=== PATIENT | female | born 1965 | race African-American/Black ===

== ENCOUNTER 2016-08-11 15:15 | Emergency (ER) | payer MEDICARE ==
[~2016-08-11] VITALS: Ht 170.2 cm; Wt 125.0 kg
[~2016-08-11 15:15] MED LIST: ATENOLOL50 MG PO; AUGMENTIN875TAB OR; BACTRIM DS1 TAB PO; CIPRO500 MG OR; CIPRO500 MG PO; CIPROFLOXACN500 MG PO; CLONIDINE0.2 MG OR; EC-NAPROSYN500 MG OR; FIORICET PO; FLAGYL500 MG OR; FLEXERIL OR; FLEXERIL PO; FLEXERIL5 M1 PO; FUROSEMIDE20 MG PO; HYDROCHLOROT12.5 M1 OR; HYDROCHLOROT12.5 MG OR; LASIX 20 MG TAB20 MG PO; LEVAQUIN500 MG OR; LISINOPRIL5 MG OR; LORTAB 5/3255 MG PO; LORTAB 7.5 OR; MEDDOSEPAK PO; MEDROL4 M1 OR; MELOXICAM7.5 MG PO; METRONIDAZOL500 MG PO; NAPROSYN500 MG OR; NEXIUM20 MG PO; NO HOME MEDS; OMEPRAZOLE20 M1 OR; OMEPRAZOLE40 MG PO; PHENERGAN25 MG/ML IM; POLY GLYCOL3350 MG PO; PYRIDIUM200 MG PO; REGLAN10 MG OR; ROBAXIN250 MG OR; TIZANIDINE2 MG PO; TORADOL IM; TRAMADOL HCL50 MG PO; TYLENOL # 31 TAB PO; ULTRAM50 M1 OR; ULTRAM50 M1 PO; ULTRAM50 MG OR; ULTRAM50 MG PO; [UNRECOGNIZED DRUG - REMARK]
[2016-08-11] MEDS ORDERED: TRAMADOL HYDROC50 MG (16:05)
[2016-08-11] MEDS ORDERED: RANITIDINE150 M1 PO (16:06)
[2016-08-11] MEDS ORDERED: AMITIZA24 MC1 PO (16:12)
[2016-08-11] MEDS ORDERED: MIRALAX3350 N1 PO (16:16)
[2016-08-11 16:28] LABS: HEMATOCRIT 40.5 % (37.0-47.0); HEMOGLOBIN 13.4 g/dl (12.0-16.0); IMMATURE GRANULOCYTES 0.2 % (0.0-1.0); MEAN CELL VOLUME 86.4 fL CALC (80.0-100.0); MEAN CORPUSCULAR HGB 28.6 pG CALC (26.0-32.0); MEAN CORPUSCULAR HGB CONC 33.1 g/L CALC (32.0-36.0); NEUT# 2.77 thou/uL (2.00-7.15); RED BLOOD COUNT 4.69 mill/uL (4.20-5.60); RED CELL DISTRI WIDTH 14.5 % (11.5-15.5)
[2016-08-11 16:30] LABS: URINE BILIRUBIN - DIPSTICK NEGATIVE (NEGATIVE); URINE BLOOD DIPSTICK NEGATIVE (NEGATIVE); URINE CLARITY CLEAR; URINE COLOR YELLOW; URINE GLUCOSE - DIPSTICK NEGATIVE (NEGATIVE); URINE KETONE NEGATIVE (NEGATIVE); URINE LEUK ESTERASE NEGATIVE (Negative); URINE NITRITE - DIPSTICK NEGATIVE (Negative); URINE PROTEIN - DIPSTICK NEGATIVE (NEG-TRACE); URINE UROBILINOGEN - DIPSTICK 0.2 E.U./dL (0.2)
[2016-08-11 16:45] LABS: ALBUMIN 4.3 g/dL (3.2-5.0); ALKALINE PHOSPHATASE 92 u/l (38-126); ANION GAP 15 (6-22 (CALC)); BILIRUBIN, TOTAL 0.6 mg/dL (0.0-1.4); BUN 13 mg/dL (7-17); BUN/CREATININE RATIO 17 (12-20 (CALC)); CALCIUM 9.8 mg/dL (8.4-10.2); CARBON DIOXIDE 29 mmol/l (22-30); CHLORIDE 104 mmol/l (95-108); CREATININE 0.7 mg/dL (0.5-1.0); GFR > 60 ML/MIN (>=60 (CALC)); GFR FOR AFR.AMER. > 60 ML/MIN (>=60 (CALC)); GLUCOSE 96 mg/dL (65-105); LIPASE 55 u/l (23-300); POTASSIUM 4.4 mmol/l (3.5-5.1); SGOT/AST 63 u/l (14-36); SGPT/ALT 57 u/l (9-52); SODIUM 144 mmol/l (137-146); TOTAL PROTEIN 7.4 g/dL (6.3-8.2)
[2016-08-11] MEDS ORDERED: ZOFRAN ODT4 MG PO (20:39)
[2016-08-11] MEDS ORDERED: ULTRAM50 M1 PO (20:39)
[2016-08-11] MEDS ORDERED: FLEXERIL PO (20:39)
[2016-08-11 21:20] VITALS: BP 153/77
== END 2016-08-11 21:22 | disposition home or self-care (01) ==
LOC: ED 15:15
PROVIDERS: Emergency Medicine
DX: R10.31 Right lower quadrant pain (principal); R10.32 Left lower quadrant pain; R11.0 Nausea; M46.1 Sacroiliitis, not elsewhere classified

== ENCOUNTER 2016-12-20 18:58 | Emergency (ER) | payer MEDICARE ==
[~2016-12-20] VITALS: Ht 170.2 cm; Wt 127.6 kg
[~2016-12-20 18:58] MED LIST changes: +AMITIZA24 MC1 PO; +MIRALAX3350 N1 PO; +RANITIDINE150 M1 PO; +TRAMADOL HYDROC50 MG; +ZOFRAN ODT4 MG PO
[2016-12-20 20:31] LABS: HEMATOCRIT 38.4 % (37.0-47.0); HEMOGLOBIN 12.7 g/dl (12.0-16.0); IMMATURE GRANULOCYTES 0.2 % (0.0-1.0); MEAN CELL VOLUME 88.9 fL CALC (80.0-100.0); MEAN CORPUSCULAR HGB 29.4 pG CALC (26.0-32.0); MEAN CORPUSCULAR HGB CONC 33.1 g/L CALC (32.0-36.0); NEUT# 3.54 thou/uL (2.00-7.15); RED BLOOD COUNT 4.32 mill/uL (4.20-5.60); RED CELL DISTRI WIDTH 14.1 % (11.5-15.5)
[2016-12-20 20:32] LABS: URINE BILIRUBIN - DIPSTICK NEGATIVE (NEGATIVE); URINE BLOOD DIPSTICK NEGATIVE (NEGATIVE); URINE CLARITY CLEAR; URINE COLOR YELLOW; URINE GLUCOSE - DIPSTICK NEGATIVE (NEGATIVE); URINE KETONE NEGATIVE (NEGATIVE); URINE LEUK ESTERASE NEGATIVE (NEGATIVE); URINE NITRITE - DIPSTICK NEGATIVE (Negative); URINE PROTEIN - DIPSTICK NEGATIVE (NEG-TRACE); URINE SPECIFIC GRAVITY 1.015; URINE UROBILINOGEN - DIPSTICK 0.2 E.U./dL (0.2)
[2016-12-20 20:47] LABS: ALBUMIN 4.1 g/dL (3.2-5.0); ALKALINE PHOSPHATASE 93 u/l (38-126); AMYLASE 103 u/l (30-110); ANION GAP 12 (6-22 (CALC)); BILIRUBIN, TOTAL 0.8 mg/dL (0.0-1.4); BUN 13 mg/dL (7-17); BUN/CREATININE RATIO 21 (12-20 (CALC)); CALCIUM 9.2 mg/dL (8.4-10.2); CARBON DIOXIDE 30 mmol/l (22-30); CHLORIDE 105 mmol/l (95-108); CREATININE 0.6 mg/dL (0.5-1.0); GFR > 60 ML/MIN (>=60 (CALC)); GFR FOR AFR.AMER. > 60 ML/MIN (>=60 (CALC)); GLUCOSE 86 mg/dL (65-105); LIPASE 50 u/l (23-300); POTASSIUM 3.7 mmol/l (3.5-5.1); SGOT/AST 32 u/l (14-36); SGPT/ALT 59 u/l (9-52); SODIUM 143 mmol/l (137-146); TOTAL PROTEIN 7.3 g/dL (6.3-8.2)
[2016-12-20 21:38] VITALS: BP 157/76
== END 2016-12-20 22:10 | disposition home or self-care (01) ==
LOC: ED 18:58
PROVIDERS: Emergency Medicine
DX: R10.33 Periumbilical pain (principal); G89.29 Other chronic pain; I10 Essential (primary) hypertension; Z90.49 Acquired absence of other specified parts of digestive tract
CPT/HCPCS: S0164

== ENCOUNTER 2017-12-04 04:14 | Emergency (ER) | payer MEDICARE ==
[~2017-12-04] VITALS: Ht 170.2 cm; Wt 128.8 kg
[2017-12-04 06:07] LABS: URINE BILIRUBIN - DIPSTICK NEGATIVE (NEGATIVE); URINE BLOOD DIPSTICK NEGATIVE (NEGATIVE); URINE CLARITY TURBID; URINE COLOR YELLOW; URINE GLUCOSE - DIPSTICK NEGATIVE (NEGATIVE); URINE KETONE NEGATIVE (NEGATIVE); URINE LEUK ESTERASE NEGATIVE (NEGATIVE); URINE NITRITE - DIPSTICK NEGATIVE (Negative); URINE PROTEIN - DIPSTICK NEGATIVE (NEG-TRACE); URINE UROBILINOGEN - DIPSTICK 0.2 E.U./dL (0.2)
[2017-12-04] MEDS ORDERED: MIRALAX3350 N1 PO (06:10)
[2017-12-04 06:13] LABS: HEMATOCRIT 41.2 % (37.0-47.0); HEMOGLOBIN 13.6 g/dl (12.0-16.0); IMMATURE GRANULOCYTES 0.3 % (0.0-1.0); MEAN CORPUSCULAR HGB 29.7 pG CALC (26.0-32.0); NEUT# 5.05 thou/uL (2.00-7.15); RED BLOOD COUNT 4.58 mill/uL (4.20-5.60); RED CELL DISTRI WIDTH 13.4 % (11.5-15.5)
[2017-12-04 06:21] LABS: ALKALINE PHOSPHATASE 104 u/l (38-126); AMYLASE 71 u/l (30-110); ANION GAP 13 (6-22 (CALC)); BILIRUBIN, TOTAL 0.7 mg/dL (0.0-1.4); BUN 13 mg/dL (7-17); BUN/CREATININE RATIO 15 (12-20 (CALC)); CARBON DIOXIDE 27 mmol/l (22-30); CHLORIDE 104 mmol/l (95-108); CREATININE 0.9 mg/dL (0.5-1.0); GFR > 60 ML/MIN (>=60 (CALC)); GFR FOR AFR.AMER. > 60 ML/MIN (>=60 (CALC)); LIPASE 33 u/l (23-300); SGOT/AST 29 u/l (14-36); SGPT/ALT 34 u/l (9-52); SODIUM 140 mmol/l (137-146); TOTAL PROTEIN 7.1 g/dL (6.3-8.2)
[2017-12-04] MEDS ORDERED: PREVACID30 M3 PO (07:40)
[2017-12-04] MEDS ORDERED: ULTRAM50 M1 PO (07:40)
[2017-12-04 07:50] VITALS: BP 131/79
== END 2017-12-04 07:50 | disposition home or self-care (01) ==
LOC: ED 04:14
PROVIDERS: Emergency Medicine
DX: R10.32 Left lower quadrant pain (principal); R10.31 Right lower quadrant pain; G89.29 Other chronic pain; I10 Essential (primary) hypertension; Z90.49 Acquired absence of other specified parts of digestive tract
CPT/HCPCS: Q9967; S0164

== ENCOUNTER 2018-03-26 01:34 | Emergency (ER) | payer MEDICARE ==
[~2018-03-26] VITALS: Ht 170.2 cm; Wt 127.0 kg
[~2018-03-26 01:34] MED LIST changes: +PREVACID30 M3 PO
[2018-03-26 02:28] LABS: HEMATOCRIT 38.4 % (37.0-47.0); HEMOGLOBIN 12.7 g/dl (12.0-16.0); IMMATURE GRANULOCYTES 0.2 % (0.0-5.0); MEAN CELL VOLUME 89.9 fL CALC (80.0-100.0); MEAN CORPUSCULAR HGB 29.7 pG CALC (26.0-32.0); MEAN CORPUSCULAR HGB CONC 33.1 g/L CALC (32.0-36.0); NEUT# 2.92 thou/uL (2.00-7.15); RED BLOOD COUNT 4.27 mill/uL (4.20-5.60); RED CELL DISTRI WIDTH 13.5 % (11.5-15.5)
[2018-03-26 02:29] LABS: URINE BILIRUBIN - DIPSTICK NEGATIVE (NEGATIVE); URINE BLOOD DIPSTICK NEGATIVE (NEGATIVE); URINE COLOR YELLOW; URINE GLUCOSE - DIPSTICK NEGATIVE (NEGATIVE); URINE KETONE NEGATIVE (NEGATIVE); URINE NITRITE - DIPSTICK NEGATIVE (Negative); URINE PROTEIN - DIPSTICK NEGATIVE (NEG-TRACE); URINE SPECIFIC GRAVITY 1.025; URINE UROBILINOGEN - DIPSTICK 0.2 E.U./dL (0.2)
[2018-03-26 02:42] LABS: URINE BACTERIA FEW hpf; URINE CLARITY SL CLOUDY; URINE LEUK ESTERASE MODERATE (NEGATIVE); URINE MUCUS FEW hpf (NONE-FEW); URINE SQUAMOUS EPITHELIAL CELL MODERATE EPI/hpf (0-FEW)
[2018-03-26 03:01] LABS: ALBUMIN 3.5 g/dL (3.2-5.0); ALKALINE PHOSPHATASE 83 u/l (38-126); AMYLASE 90 u/l (30-110); ANION GAP 10 (6-22 (CALC)); BILIRUBIN, TOTAL 0.6 mg/dL (0.0-1.4); BUN 22 mg/dL (7-17); BUN/CREATININE RATIO 29 (12-20 (CALC)); CARBON DIOXIDE 28 mmol/l (22-30); CHLORIDE 107 mmol/l (95-108); CREATININE 0.8 mg/dL (0.5-1.0); GFR > 60 ML/MIN (>=60 (CALC)); GFR FOR AFR.AMER. > 60 ML/MIN (>=60 (CALC)); LIPASE 63 u/l (23-300); SGOT/AST 25 u/l (14-36); SODIUM 141 mmol/l (137-146); TOTAL PROTEIN 6.3 g/dL (6.3-8.2)
[2018-03-26] MEDS ORDERED: CIPROFLOXACN500 MG PO (03:27)
[2018-03-26 03:55] VITALS: BP 121/65
== END 2018-03-26 04:00 | disposition home or self-care (01) ==
LOC: ED 01:34
PROVIDERS: Emergency Medicine
DX: R10.31 Right lower quadrant pain (principal); R10.32 Left lower quadrant pain; N39.0 Urinary tract infection, site not specified
CPT/HCPCS: Q9967; S0164

== ENCOUNTER 2018-06-02 09:53 | Outpatient (RCR) | payer MEDICARE | END 2018-07-20 10:30 | disposition home or self-care (01) | LOC: PT 09:53 | PROVIDERS: ATTEND Internal Medicine | DX: S43.422D Sprain of left rotator cuff capsule, subsequent encounter (principal) ==

== ENCOUNTER 2019-12-20 10:15 | Emergency (ER) | payer MEDICARE ==
[~2019-12-20] VITALS: Ht 170.2 cm; Wt 118.1 kg
[2019-12-20] MEDS ORDERED: FERR SULFATE325 MG PO (10:34)
[2019-12-20] MEDS ORDERED: ZESTRIL40 MG PO (10:34)
[2019-12-20] MEDS ORDERED: MYRBETRIQ50 MG PO (10:35)
[2019-12-20] MEDS ORDERED: LINZESS72 MCG PO (10:35)
[2019-12-20] MEDS ORDERED: ALLERGY RELF10 M3 PO (10:36)
[2019-12-20] MEDS ORDERED: GABAPENTIN300 M2 PO (10:36)
[2019-12-20] MEDS ORDERED: CYCLOBENZAPR5 MG PO (12:44)
[2019-12-20 13:18] VITALS: BP 125/61
[2020-01-08] MEDS ORDERED: MEDDOSEPAK PO (15:00)
[2020-01-08] MEDS ORDERED: DICLOFENAC75 MG PO (15:02)
[2020-01-08] MEDS ORDERED: BIOTIN (15:33)
[2020-01-08] MEDS ORDERED: CENTRUM PO (15:34)
[2020-01-08] MEDS ORDERED: CALCIUM + D600 MG PO (15:34)
[2020-01-08] MEDS ORDERED: FAMOTIDINE20 M3 PO (15:35)
[2020-01-08] MEDS ORDERED: HYDROCHLOROT25 MG PO (15:36)
[2020-01-08] MEDS ORDERED: E400400 UNIT PO (15:37)
[2020-01-08] MEDS ORDERED: SHINGRIX IM (15:38)
== END 2019-12-20 13:18 | disposition home or self-care (01) ==
LOC: ED 10:15
DX: R07.81 Pleurodynia (principal); I10 Essential (primary) hypertension

== ENCOUNTER 2021-05-10 19:15 | Emergency (ER) | payer MEDICARE ==
[~2021-05-10] VITALS: Ht 170.2 cm; Wt 125.0 kg
[~2021-05-10 19:15] MED LIST changes: +ALLERGY RELF10 M3 PO; +BIOTIN; +CALCIUM + D600 MG PO; +CENTRUM PO; +CYCLOBENZAPR5 MG PO; +DICLOFENAC75 MG PO; +E400400 UNIT PO; +FAMOTIDINE20 M3 PO; +FERR SULFATE325 MG PO; +GABAPENTIN300 M2 PO; +HYDROCHLOROT25 MG PO; +LINZESS72 MCG PO; +MYRBETRIQ50 MG PO; +SHINGRIX IM; +ZESTRIL40 MG PO
[2021-05-10] MEDS ORDERED: TORADOL PO (21:53)
[2021-05-10 22:19] VITALS: BP 130/66
== END 2021-05-10 22:15 | disposition home or self-care (01) ==
LOC: ED 19:15
DX: M70.72 Other bursitis of hip, left hip (principal); I10 Essential (primary) hypertension

== ENCOUNTER 2021-07-21 08:26 | Observation (INO) | payer MEDICARE ==
[~2021-07-21] VITALS: Ht 170.2 cm; Wt 117.0 kg
[~2021-07-21 08:26] MED LIST changes: +TORADOL PO
[2021-07-21 15:11] LABS: URINE BILIRUBIN - DIPSTICK NEGATIVE (NEGATIVE); URINE BLOOD DIPSTICK NEGATIVE (NEGATIVE); URINE COLOR YELLOW; URINE GLUCOSE - DIPSTICK NEGATIVE (NEGATIVE); URINE KETONE NEGATIVE (NEGATIVE); URINE LEUK ESTERASE NEGATIVE (NEGATIVE); URINE PROTEIN - DIPSTICK NEGATIVE (NEG-TRACE); URINE UROBILINOGEN - DIPSTICK 0.2 E.U./dL (0.2)
[2021-07-21 15:12] LABS: URINE NITRITE - DIPSTICK NEGATIVE (Negative)
[2021-07-21 16:07] LABS: HEMOGLOBIN 11.2 g/dl (12.0-16.0); MEAN CELL VOLUME 91.4 fL CALC (80.0-100.0); MEAN CORPUSCULAR HGB 29.2 pG CALC (26.0-32.0); NEUT# 1.96 thou/uL (2.00-7.15); RED BLOOD COUNT 3.83 mill/uL (4.20-5.60); RED CELL DISTRI WIDTH 12.6 % (11.5-15.5)
[2021-07-21 16:23] LABS: BILIRUBIN, TOTAL 0.7 mg/dL (0.0-1.4); CREATININE 1.4 mg/dL (0.5-1.0); POTASSIUM 4.5 mmol/l (3.5-5.1); TOTAL PROTEIN 6.9 g/dL (6.3-8.2)
[2021-07-21 17:55] VITALS: BP 133/43
[2021-07-21 18:42] VITALS: BP 109/31
[2021-07-22 04:07] VITALS: BP 97/45
[2021-07-22 06:16] LABS: HEMATOCRIT 35.4 % (37.0-47.0); HEMOGLOBIN 11.3 g/dl (12.0-16.0); MEAN CELL VOLUME 94.1 fL CALC (80.0-100.0); MEAN CORPUSCULAR HGB 30.1 pG CALC (26.0-32.0); MEAN CORPUSCULAR HGB CONC 31.9 g/dL CAL (32.0-36.0); RED BLOOD COUNT 3.76 mill/uL (4.20-5.60); RED CELL DISTRI WIDTH 12.7 % (11.5-15.5)
[2021-07-22 06:34] LABS: CREATININE 1.3 mg/dL (0.5-1.0); MAGNESIUM 2.9 mg/dL (1.6-2.3); POTASSIUM 4.5 mmol/l (3.5-5.1)
[2021-07-22] MEDS ORDERED: OMEPRAZOLE DR20 MG PO (09:01)
[2021-07-22] MEDS ORDERED: SIMVASTATIN40 MG PO (09:02)
[2021-07-22] MEDS ORDERED: CELEBREX200 M1 PO (09:03)
[2021-07-22 10:25] VITALS: BP 125/77
[2021-07-22 15:31] VITALS: BP 96/41
[2021-07-22 19:30] VITALS: BP 106/41
[2021-07-23 04:01] VITALS: BP 1408/41
[2021-07-23 05:57] LABS: HEMATOCRIT 32.3 % (37.0-47.0); HEMOGLOBIN 10.5 g/dl (12.0-16.0); MEAN CELL VOLUME 91.5 fL CALC (80.0-100.0); MEAN CORPUSCULAR HGB 29.7 pG CALC (26.0-32.0); MEAN CORPUSCULAR HGB CONC 32.5 g/dL CAL (32.0-36.0); RED BLOOD COUNT 3.53 mill/uL (4.20-5.60); RED CELL DISTRI WIDTH 12.5 % (11.5-15.5)
[2021-07-23 06:13] LABS: ANION GAP 11 (6-22 (CALC)); BUN 18 mg/dL (7-17); BUN/CREATININE RATIO 18 (12-20 (CALC)); CARBON DIOXIDE 23 mmol/l (22-30); CHLORIDE 110 mmol/l (95-108); GFR 57 ML/MIN (>=60 (CALC)); GFR FOR AFR.AMER. > 60 ML/MIN (>=60 (CALC)); MAGNESIUM 2.4 mg/dL (1.6-2.3); POTASSIUM 4.9 mmol/l (3.5-5.1); SODIUM 139 mmol/l (137-146)
[2021-07-23] MEDS ORDERED: FLEXERIL5 M1 PO (11:23)
[2021-07-23] MEDS ORDERED: PREDNISONE20 MG PO (11:24)
== END 2021-07-23 14:53 | disposition home or self-care (01) ==
LOC: ED 08:26 → MS2 16:30
PROVIDERS: Emergency Medicine; ADMIT Hospitalist; ATTEND Hospitalist
DX: M25.552 Pain in left hip (principal); M54.50 Low back pain, unspecified; M16.12 Unilateral primary osteoarthritis, left hip; I10 Essential (primary) hypertension; K59.00 Constipation, unspecified; Z90.49 Acquired absence of other specified parts of digestive tract; Z20.822 Contact with and (suspected) exposure to COVID-19

== ENCOUNTER 2022-01-02 00:29 | Emergency (ER) | payer MEDICARE ==
[~2022-01-02] VITALS: Ht 170.2 cm; Wt 107.1 kg
[~2022-01-02 00:29] MED LIST changes: +CELEBREX200 M1 PO; +OMEPRAZOLE DR20 MG PO; +PREDNISONE20 MG PO; +SIMVASTATIN40 MG PO
[2022-01-02] MEDS ORDERED: AMOXICILLIN500 MG PO (00:43)
[2022-01-02 02:01] VITALS: BP 130/67
== END 2022-01-02 02:05 | disposition home or self-care (01) ==
LOC: ED 00:29
DX: R07.0 Pain in throat (principal); I10 Essential (primary) hypertension

== ENCOUNTER 2022-09-12 11:50 | Emergency (ER) | payer MEDICARE ==
[~2022-09-12] VITALS: Ht 170.2 cm; Wt 104.3 kg
[~2022-09-12 11:50] MED LIST changes: +AMOXICILLIN500 MG PO
[2022-09-12 12:00] VITALS: BP 150/77
[2022-09-12 12:09] VITALS: BP 144/63
[2022-09-12 12:13] LABS: URINE BILIRUBIN - DIPSTICK NEGATIVE (NEGATIVE); URINE BLOOD DIPSTICK TRACE-INTACT (NEGATIVE); URINE COLOR YELLOW; URINE GLUCOSE - DIPSTICK NEGATIVE (NEGATIVE); URINE KETONE NEGATIVE (NEGATIVE); URINE LEUK ESTERASE NEGATIVE (NEGATIVE); URINE PROTEIN - DIPSTICK NEGATIVE (NEG-TRACE); URINE SPECIFIC GRAVITY 1.015; URINE UROBILINOGEN - DIPSTICK 0.2 E.U./dL (0.2)
[2022-09-12 12:14] LABS: URINE NITRITE - DIPSTICK NEGATIVE (Negative)
[2022-09-12 12:16] VITALS: BP 147/64
[2022-09-12 12:31] VITALS: BP 156/71
[2022-09-12 12:46] VITALS: BP 132/76
[2022-09-12 16:53] VITALS: BP 132/76
[2022-09-12] MEDS ORDERED: IBUPROFEN600 MG PO (17:04)
[2022-09-12] MEDS ORDERED: CYCLOBENZAPRINE10 MG PO (17:04)
== END 2022-09-12 17:17 | disposition home or self-care (01) ==
LOC: ED 11:50
PROVIDERS: Family Medicine
DX: R07.81 Pleurodynia (principal); I10 Essential (primary) hypertension

== ENCOUNTER 2023-06-17 09:30 | Emergency (ER) | payer MEDICARE ==
[~2023-06-17] VITALS: Ht 170.2 cm; Wt 106.4 kg
[~2023-06-17 09:30] MED LIST changes: +CYCLOBENZAPRINE10 MG PO; +IBUPROFEN600 MG PO
[2023-06-17] MEDS ORDERED: IBUPROFEN600 MG PO (12:05)
[2023-06-17] MEDS ORDERED: MUCINEX1200 MG PO (12:05)
[2023-06-17] MEDS ORDERED: PAXLOVID PO (12:06)
[2023-06-17 12:24] VITALS: BP 147/92
== END 2023-06-17 12:31 | disposition home or self-care (01) ==
LOC: ED 09:30
DX: U07.1 COVID-19 (principal); I10 Essential (primary) hypertension; R05.9 Cough, unspecified; R50.9 Fever, unspecified; M79.10 Myalgia, unspecified site

== ENCOUNTER 2023-12-16 09:33 | Emergency (ER) | payer MEDICARE ==
[~2023-12-16] VITALS: Ht 170.2 cm; Wt 104.0 kg
[2023-12-16] VITALS (10 sets, daily range): BP systolic 113–168; BP diastolic 74–121
[~2023-12-16 09:33] MED LIST changes: +MUCINEX1200 MG PO; +PAXLOVID PO
[2023-12-16] MEDS ORDERED: ACETAMINOPHEN 500 MG TAB PO ONE (10:15)
[2023-12-16] MEDS ORDERED: KETOROLAC TROMETHAMINE 30 MG/ML SDV IM ONE (10:15)
[2023-12-16] MEDS ORDERED: NAPROXEN500 MG PO (12:27)
[2023-12-16] MEDS ORDERED: TRAMADOL HYDROC50 M1 PO (12:27)
[2023-12-16] MEDS ORDERED: IBUPROFEN600 MG PO (12:34)
== END 2023-12-16 12:44 | disposition home or self-care (01) ==
LOC: ED 09:33
DX: M17.12 Unilateral primary osteoarthritis, left knee (principal); I10 Essential (primary) hypertension

== ENCOUNTER 2024-06-27 23:32 | Emergency (ER) | payer MEDICARE ==
[~2024-06-27] VITALS: Ht 170.2 cm; Wt 109.0 kg
[~2024-06-27 23:32] MED LIST changes: +NAPROXEN500 MG PO; +TRAMADOL HYDROC50 M1 PO
[2024-06-28 00:17] VITALS: BP 145/79
[2024-06-28] MEDS ORDERED: KETOROLAC TROMETHAMINE 30 MG/ML SDV IM ONE (00:30)
[2024-06-28 00:31] VITALS: BP 144/76
[2024-06-28 01:00] VITALS: BP 139/72
[2024-06-28 01:31] VITALS: BP 147/84
[2024-06-28] MEDS ORDERED: NAPRELAN500 MG PO (02:22)
[2024-06-28] MEDS ORDERED: METHOCARBAMOL500 MG PO (02:22)
[2024-06-28 02:58] VITALS: BP 147/84
== END 2024-06-28 02:58 | disposition home or self-care (01) ==
LOC: ED 23:32
DX: M25.551 Pain in right hip (principal); M16.11 Unilateral primary osteoarthritis, right hip; I10 Essential (primary) hypertension